=== PATIENT | male | born 1985 | race Caucasian/White ===

== ENCOUNTER 2025-02-22 02:23 | Emergency (ER) | payer OTHER, BC, SELFPAY ==
[2025-02-22 02:24] VITALS: BP 140/93; PULSE 110; RESP 20; TEMP 37; O2SAT 96; BMI 30.7
--- NOTE | 2025-02-22 02:55 | PC.NURSE ---
pt noted to have lac to left wrist, states he was digging in his work bucket when wire cutters went through his wrist. bleeding controlled. angelica vinson at bedside
--- OUTSIDE RECORDS SUMMARY | 2025-02-22 03:03 | XMS_ITS | Clinical Summary ---
Author Organization [facility] Address [address] [place] [address] Care Team Providers Care Pressure Vessel Inspector Name Role Phone Unavailable Primary Care Provider Unavailabl e Allergies No known active allergies Medications * This document contains information received from the source organization and may not represent a complete record from that organization. predniSONE (DELTASONE) 10 MG tabletIndicatio ns:Poison lakeshia dermatitis Take five tablets (50 mg total) by mouth 1 (one) time each day for 2 days, THEN four tablets (40 mg total) 1 (one) time each day for 2 days, THEN three tablets (30 mg total) 1 (one) time each day for 2 days, THEN two tablets (20 mg total) 1 (one) time each day for 2 days, THEN one tablet (10 mg total) 1 (one) time each day for 2 days. 30 tablet 01/07/2025 02/17/20 25 Active Problems No known active problems Encounters Date Type Department Care Team Description 01/07/2025 12:00 PM EDT Office Visit [address] [address] Charisma Draper, DNP Poison lakeshia dermatitis (Primary Dx) from Last 3 Months Immunizations Immunization Administration Dates Next Due Hep B (pedi) 08/14/1998,02/07/1998,12/05/1997 MMR 08/14/1998 Td (adult), adsorbed 08/14/1998 Social History Tobacco Use Types Packs/Day Years Used Date Smoking Tobacco: Never Assessed Sex and Gender Information Value Date Recorded Sex Assigned at Not on file Legal Sex Male 10:49 PM EDT Gender Identity Not on file Sexual Orientation Not on file Last Filed Vital Signs Vital Sign Reading Time Taken Comments Blood Pressure 137/88 01/07/2025 11:58 AM EDT Pulse 79 01/07/2025 11:58 AM EDT Temperature 36.6 C (97.8 F) 01/07/2025 11:58 AM EDT Respiratory Rate 18 06/02/2019 11:38 AM EST Oxygen Saturation 96% 01/07/2025 11:58 AM EDT Inhaled Oxygen Concentration - - Weight - - Height - - Body Mass Index - - Plan of Treatment Health Maintenance Due Date Last Done Comments Hepatitis C Screening 1986 DTaP/Tdap/Td (2 - Tdap) 08/15/1998 08/14/1998 COVID-19 Vaccine (2023-2 5 season) 2025 Influenza (#1) 2025 Zoster (Shingrix) (1 of 2) 2036 Hep B Completed 08/14/1998, 02/07/1998, 12/05/1997 HPV Vaccine (No Doses Required) Completed Hep A Aged Out No longer eligi ble based on patient's age to complete this topic Hib Aged Out No longer eligi ble based on patient's age to complete this topic Meningococcal ACWY Aged Out No longer eligible based on patient's age to complete this topic Pneumococcal Aged Out No longer eligi ble based on patient's age to complete this topic Insurance [employer] FEE FOR SERVICE PPO EYEMED ACCESS * Guarantor: BRETT PACHECO / SANDY Account Type Relation to Patient Date of Phone Billing Address [employer] [phone] (Home) [phone] (Work) ACCOUNT[employer] PA[employer] [address] [place] [address]
--- OUTSIDE RECORDS SUMMARY | 2025-02-22 03:03 | XMS_ITS | Clinical Summary ---
Author Organization [facility] Address [address] [place] [address] Care Team Providers Care Edge Sander Name Role Phone Unavailable Primary Care Provider Unavailabl e Social History Tobacco Use Types Packs/Day Years Used Date Smoking Tobacco: Never Assessed Sex and Gender Information Value Date Recorded Sex Assigned at Not on file Legal Sex Male 2:56 PM EDT Gender Identity Not on file Sexual Orientation Not on file Plan of Treatment Health Maintenance Due Date Last Done Comments Hepatitis C Virus Screening 1986 HIV Screening 09/21/1999 DTaP/Tdap/Td Vaccines (1 - Tdap) 2005 Hepatitis B Vaccines (1 of 3 - 19+ 3-dose series) 2005 HPV Vaccines (1 - 3-dose SCD M series) 2013 COVID-19 Vaccine (2023-2 5 season) 2025 Pneumococcal Vaccine: Pediat rivka (0-5 Years) and At-Risk Patients (6 to 49 Years) Aged Out No longer eligible b ased on patient's age to complete this topic
[2025-02-22] MEDS: Lidocaine HCl 1%/Epi 1:100,000 10 ML VIAL INFILTRATI (03:30)
--- NOTE | 2025-02-22 03:42 | ED_ITS ---
HPI - General Adult General Chief complaint: Skin/Abscess/Foreign Body Stated complaint: left hand laceration Time Seen by Provider: 02/22/25 02:49 Source: patient Limitations: no limitations History of Present Illness ED Provider: Jenise Davila PA-C HPI narrative: 39-year-old male who is otherwise healthy presents with laceration to left wrist. Patient states while at work overnight, he accidentally cut himself with a knife. Tetanus up-to-date. Related Data Allergies Allergy/AdvReac Type Severity Reaction Status Date / Time No Known Allergies Allergy Verified 02/22/25 02:26 Review of Systems Review of Systems: Yes all other systems are reviewed and are negative Constitutional: Constitutional: Denies fatigue and Denies fever(s) Integumentary/Breasts: Skin/Breast: Reports wounds Endocrine: Endocrine: Denies fatigue PMFSH Past Medical History Attestation statement: The following information was validated with the patient. Social History Social History Smoked in Last 30 Days: No Use of substances other than those prescribed or required for medical reasons: No Advance Directives: No Advance Directives Information Provided: Yes Physical Exam ED Vital Signs: Vital Signs - 24 hr 02/22/25 02:24 02/22/25 03:50 02/22/25 03:51 Temperature 98.6 F 98.5 F 98.5 F Pulse Rate 110 H 88 88 Respiratory Rate 20 17 17 Blood Pressure 140/93 H 135/73 135/73 Pulse Oximetry 96 100 100 Oxygen Delivery Method Room Air Room Air Room Air BMI result Body Mass Index 30.7 Const Other: Alert well-appearing Orientation/consciousness: patient oriented x3 Resp Effort & Inspection: normal respiratory effort Cardio Other: Normal peripheral perfusion Skin Other: Warm dry no rash Neuro General: patient oriented x3, gait normal, no focal motor deficits and CN's II- XI intact bilaterally Extrem Other: 2 centimeter curved laceration noted to left wrist, currently not bleeding, deep to subcu tissue Psych Other: Cooperative Medications Administered Discontinued Medications Generic Name Dose Route Start Last Admin Trade Name Freq PRN Reason Stop Dose Admin Lidocaine/Epinephrine 10 ml 02/22/25 02:49 02/22/25 03:30 Lidocaine Hcl 1%/Epi 1:100,000 10 Ml Vial INFILTRATI 02/22/25 02:50 10 ml ONCE ONE Administration Procedures Laceration Laceration 1: Site: upper extremity Side (If applicable): left Size (cm): 2 Description: other (Curve) Depth: simple, single layer Local Anesthetic: lidocaine 1% and with epi Amount of anesthesia used (mL): 5 Pre-repair: irrigated extensively and deep structures intact Skin layer closed with: nylon Size (cm): 3-0 Number of sutures: 5 Technique: simple, interrupted and horizontal mattress Medical Decision Making Medical Decision Making MDM Narrative: 39-year-old male who is otherwise healthy presents with laceration to left wrist. Patient states while at work overnight, he accidentally cut himself with a knife. Tetanus up-to-date. No chronic issues History: Per patient I have considered the following differential diagnoses: Laceration, contusion, abrasion, excoriation Plan: Patient has sustained a laceration it will require simple repair, tetanus is up-to-date no indication for labs or imaging Differential Diagnosis Differential Diagnoses: The differential diagnosis associated with the presentation includes See medical decision may Admission/Observation Consideration of admission/observation: Escalation of care including admission/observation considered Not applicable Discharge Plan Discharge Clinical Impression: Laceration of left wrist Patient Disposition: Home, Self-Care Instructions: Laceration (ED) Additional Instructions: 5 stitches were used to repair the wound. They can be removed in 7 days. Watch for signs of infection which would include redness, swelling, warmth, severe pain, pus draining from the site or fever. If you develop any of these symptoms seek medical attention. Do not submerge your hand in a pool, hot tub or bath, or doing dishes. You can still shower normally. Keep the area clean and dry. Stand Alone Forms: Work/School Release Interventions: ED Discharge Assessment Last Done: 02/22/25 03:51 Discharge Date/Time: 02/22/25 03:52 Print Language: Montserratian
[2025-02-22 03:50] VITALS: BP 135/73; PULSE 88; RESP 17; TEMP 36.9; O2SAT 100
[2025-02-22 03:51] VITALS: BP 135/73; PULSE 88; RESP 17; TEMP 36.9; O2SAT 100
== END 2025-02-22 03:52 | disposition home or self-care (01) ==
PROVIDERS: Emergency Provider Emergency Medicine
DX: S61.512A Laceration without foreign body of left wrist, initial encounter (principal); W26.0XXA Contact with knife, initial encounter; Y93.89 Activity, other specified; Y92.89 Other specified places as the place of occurrence of the external cause; Y99.8 Other external cause status
CPT/HCPCS: 12001; 99284; J2004